=== PATIENT | female | born 1950 | race Caucasian/White ===

== ENCOUNTER → 2020-06-14 15:13 | Outpatient (CLI) | payer MEDICARE, SELFPAY ==
[2020-06-14] MEDS: COVID-19 VACC #1, MRNA(MOD) 100 MCG/0.5 ML VIAL IM (15:25)
== END ==
PROVIDERS: Visit Provider Internal Medicine
DX: Z23 Encounter for immunization (principal)
CPT/HCPCS: 0011A; 91301

== ENCOUNTER → 2020-07-12 15:33 | Outpatient (CLI) | payer MEDICARE, SELFPAY ==
[2020-07-12] MEDS: COVID-19 VACC #2, MRNA(MOD) 100 MCG/0.5 ML VIAL IM (15:38)
== END ==
PROVIDERS: Visit Provider Internal Medicine
DX: Z23 Encounter for immunization (principal)
CPT/HCPCS: 0012A; 91301

== ENCOUNTER 2025-04-13 12:49 | Emergency (ER) | payer MEDICARE, SELFPAY ==
[2025-04-13 12:58] VITALS: BP 126/85; PULSE 61; RESP 17; TEMP 36.6; O2SAT 97; BMI 34.4
--- NOTE | 2025-04-13 13:07 | EKG_ITS ---
[facility] [id number], [place] [address] Test Date: 2025-04-13 Pat Name: Bozena Baca Department: [facility] Room: Gender: Female Marketing Team Lead: : 1950 Requested By: Order Number: [id number] Reading MD: Abdifatah Snyder MD Measurements Intervals [place] Rate: 52 P: 36 IL: 180 QRS: 4 QRSD: 100 T: 73 QT: 450 QTc: 418 Interpretive Statements Sinus bradycardia Electronically Signed On 04-13-2025 14:29:15 PST by Abdifatah Snyder MD
[2025-04-13 13:33] LABS: Add Manual Diff / Slide Review NO; Hematocrit 41.9 % (36-46); Hemoglobin 13.9 g/dL (12.0-16.0); Lymphocytes Absolute Auto 1600 /uL (1100-4500); Mean Corpuscular HGB Conc 33.2 % (30-36); Mean Corpuscular Hemoglobin 28.3 PG (26-34); Mean Corpuscular Volume 85.4 fL (80-100); Platelet Count 187 X10^3/uL (150-400)
[2025-04-13 13:46] LABS: Alanine Aminotransferase 33 IU/L (<35); Albumin 4.1 g/dL (3.5-5.0); Albumin Globulin Ratio 1.5 (1.0-2.8); Alkaline Phosphatase 81 U/L (38-126); Blood Urea Nitrogen 16 mg/dL (7-17); Calcium 8.8 mg/dL (8.4-10.2); Carbon Dioxide 23 mmol/L (22-32); Chloride 106 mmol/L (98-107); Estimated Glomerular Filt Rate > 60 mL/min (>60); Globulin 2.7 g/dL (1.7-4.1); Glucose 106 mg/dL (70-99); HEMOLYSIS < 15 (0-50); Lipase 145 U/L (23-300); Potassium 4.6 mmol/L (3.4-5.1); Sodium 137 mmol/L (137-145); Total Protein 6.8 g/dL (6.3-8.2)
[2025-04-13 13:57] LABS: Troponin I < 0.012 ng/mL (0.01-0.034)
--- NOTE | 2025-04-13 15:20 | ED.GENADULT ---
HPI - General Adult General Chief complaint: Abdominal Pain Stated complaint: Pain in R side rib cage,rad pain R neck/shoulder Time Seen by Provider: 04/13/25 14:54 Source: patient Mode of arrival: Ambulatory History of Present Illness HPI narrative: 74-year-old woman with a history of hypertension, reflux, depression Was at the grocery store pushing cart and noticed a heaviness in the midepigastrium including weakness in both arms. Now complaining of right upper quadrant abdominal and lower right rib pain. No fevers, diaphoresis, no recent upper respiratory infections. Related Data Allergies Allergy/AdvReac Type Severity Reaction Status Date / Time No Known Drug Allergies Allergy Verified 04/13/25 13:00 Review of Systems Review of Systems Narrative: Pertinent positive and negative findings as per HPI Patient History Medical History (Updated 04/13/25 @ 22:16 by Chantale Carty MD) Chronic GERD Depression Hypertension Smoking Status: Smoker, status unknown Exam Initial Vital Signs Initial Vital Signs: Vital Signs Temperature 98 F 04/13/25 12:58 Pulse Rate 61 04/13/25 12:58 Respiratory Rate 17 04/13/25 12:58 Blood Pressure 126/85 04/13/25 12:58 Pulse Oximetry 97 04/13/25 12:58 Oxygen Delivery Method Room Air 04/13/25 12:58 General: Healthy appearing, in no acute distress. Able to give a complete and coherent history. Well-nourished well-developed HEENT: Moist mucous membranes, normal sclera with reactive pupils, Respiratory: Lungs are clear to auscultation, no wheezing no rales no rhonchi. Full and symmetrical air movement Cardiac: Regular rate and rhythm no murmurs no bruits Abdomen: Soft, nontender, no rebound or guarding, no flank pain Skin: Warm and dry, no rashes Neurologic: Grossly neurologically intact with no obvious asymmetries or abnormalities Extremities: No trauma, well perfused Psych: Cooperative, appropriate insight and affect Course Orders Ordered: ED Orders 04/13/25 13:25 Complete Blood Count AUTO DIFF Stat Comprehensive Metabolic Panel Stat Lipase Stat Trop I [Troponin I] Stat 04/13/25 15:22 XR chest 1V Stat 04/13/25 16:05 Trop I [Troponin I] Stat Ondansetron HCl (Ondansetron 4 Mg/2 Ml Inj) 4 mg IV NOW PRN PRN Reason: Nausea And Vomiting Ondansetron HCl (Ondansetron 4 Mg Odt) 4 mg PO NOW PRN PRN Reason: Nausea And Vomiting Vital Signs Vital signs: Vital Signs - 8 hr 04/13/25 16:53 04/13/25 18:37 04/13/25 18:39 Temperature 97 F L Pulse Rate 50 L 50 L Respiratory Rate 16 20 Blood Pressure 183/81 H 159/70 H Pulse Oximetry 96 99 Oxygen Delivery Method Room Air Room Air 04/13/25 18:39 04/13/25 20:13 04/13/25 21:57 Temperature 97.2 F L Pulse Rate 51 L 57 L Respiratory Rate 16 18 Blood Pressure 143/74 H 152/86 H Pulse Oximetry 96 95 Oxygen Delivery Method Room Air Room Air Medical Decision Making Lab Data 04/13/25 13:25 04/13/25 13:25 Labs: Lab Results 04/13/25 04/13/25 Range/Units 13:25 16:05 WBC 6.5 (4.5-11.0) X10^3/uL RBC 4.91 (4.0-5.2) X10^6/uL Hgb 13.9 (12.0-16.0) g/dL Hct 41.9 (36-46) % MCV 85.4 (80-100) fL MCH 28.3 (26-34) PG MCHC 33.2 (30-36) % RDW 13.1 (11.6-14.8) % Plt Count 187 (150-400) X10^3/uL Neut % (Auto) 66.6 (50-75) % Lymph % (Auto) 24.3 L (25-40) % [place] % (Auto) 7.2 (3-14) % Eos % (Auto) 1.4 L (2-4) % Baso % (Auto) 0.5 (0-2) % Neut # (Auto) 4300 (6753-1026) /uL Lymph # (Auto) 1600 (3328-8699) /uL [place] # (Auto) 500 (0-900) /uL Eos # (Auto) 100 (0-450) /uL Baso # (Auto) 0 (0-100) /uL Sodium 137 (137-145) mmol/L Potassium 4.6 (3.4-5.1) mmol/L Chloride 106 (98-107) mmol/L Carbon Dioxide 23 (22-32) mmol/L BUN 16 (7-17) mg/dL Creatinine 0.99 (0.52-1.04) mg/dL Estimated GFR > 60 (>60) mL/min BUN/Creatinine Ratio 16.2 (6-22) Glucose 106 H (70-99) mg/dL Calcium 8.8 (8.4-10.2) mg/dL Total Bilirubin 0.7 (0.2-1.3) mg/dL AST 86 H (14-36) IU/L ALT 33 (<35) IU/L Alkaline Phosphatase 81 (38-126) U/L Troponin I < 0.012 < 0.012 (0.01-0.034) ng/mL Total Protein 6.8 (6.3-8.2) g/dL Albumin 4.1 (3.5-5.0) g/dL Globulin 2.7 (1.7-4.1) g/dL Albumin/Globulin Ratio 1.5 (1.0-2.8) Lipase 145 (23-300) U/L [facility] Narrative Medical decision making narrative: 74-year-old woman with a history of hypertension, reflux, depression noticed some chest pain as she was pushing her grocery cart earlier today. He has never had similar symptoms. On arrival in the emergency department she was complaining of some right lower anterior rib and right upper quadrant pain. Associated with a she describes some heaviness down both arms. Differential includes muscle strain, acute coronary syndrome, she does not have a gallbladder so gallbladder disease is less likely, pneumonia Her exam has some mild tenderness right anterior ribs. Remainder of exam is benign Labs CBC is unremarkable Chemistries are reassuring 1st and 2nd troponins are unremarkable Lipase is normal Chest x-ray shows no acute abnormality Chest x-ray shows sinus bradycardia at a rate of 52 with no acute ischemic changes 74-year-old woman with brief episode of right sided chest pain with some tenderness to palpation in the right upper quadrant associated with weakness down both arms with mild activity. This gives her a HEART score=3. Shortly after arrival in the emergency room all of her symptoms has resolved. They have not returned. We talked about paying attention over the next couple of weeks to see if she has recurrent episodes particularly to see if they are associated with exertion or shortness for breath. If so I did recommend discussion with her primary care physician for cardiac stress testing to help with further risk stratification. At this time there is no indication for further workup or hospital admission and she is safely discharge Discharge Plan Departure Patient Disposition: Home Clinical Impression: Atypical chest pain Instructions: DI for Atypical Chest Pain Activity Restrictions/Additional Instructions: Thank you for coming in today Your workup was actually very reassuring. There was no sign of a heart attack, pneumonia, collapsed lung, acute liver problems, your gallbladder as already been removed so it can not be causing symptoms either. Regarding your heart workup, chest x-ray, EKG, heart enzymes x2 are all very reassuring I suspect that this was more musculoskeletal pain or perhaps related to heartburn. Please do pay attention over the next couple of weeks. If you continue to have similar symptoms I would schedule an appointment with your primary care physician and discuss the possibility of stress test. If the symptoms are acute and not relieved within minutes you need to return again to the emergency department Referrals: Ad Goyal MD [Primary Care Provider, Internal Medicine] Stand Alone Forms: Patient Portal/API
--- NOTE | 2025-04-13 15:22 | DI.RAD.S_ITS ---
PROCEDURE: XR CHEST 1V INDICATIONS: Right chest pain TECHNIQUE: One view of the chest was acquired. COMPARISON: [facility], CR, XR CHEST 2 VIEWS, 07/11/2021, 9:22. FINDINGS: Surgical changes and devices: Sternotomy wires are seen. There is a prosthetic aortic valve. Lungs and pleura: Lungs are clear. No pleural effusions or pneumothorax. There is elevation of the left hemidiaphragm. Mediastinum: The cardiac contours are within normal limits. The aorta demonstrates calcification and tortuosity. Bones and chest wall: No suspicious bony lesions. Age-appropriate bony degenerative changes are seen. Overlying soft tissues appear unremarkable. IMPRESSION: A cause of right-sided chest pain is not seen. No focal pulmonary abnormality is seen. There is stable elevation of the left hemidiaphragm. Postoperative and degenerative changes are seen. Dictated by: Demian Shepherd M.D. on 04/13/2025 at 15:12 Approved by: Deiman Shepherd M.D. on 04/13/2025 at 15:13
[2025-04-13 16:36] LABS: Troponin I < 0.012 ng/mL (0.01-0.034)
[2025-04-13 16:53] VITALS: BP 183/81; PULSE 50; RESP 16; O2SAT 96
[2025-04-13 18:37] VITALS: BP 159/70; PULSE 50; RESP 20; O2SAT 99
[2025-04-13 18:39] VITALS: TEMP 36.1; TEMP 36.2
[2025-04-13 20:13] VITALS: BP 143/74; PULSE 51; RESP 16; O2SAT 96
[2025-04-13 21:57] VITALS: BP 152/86; PULSE 57; RESP 18; O2SAT 95
== END 2025-04-13 22:20 | disposition home or self-care (01) ==
PROVIDERS: Emergency Medicine; Emergency Provider Emergency Medicine; PCP Internal Medicine
DX: R07.89 Other chest pain (principal); R10.11 Right upper quadrant pain; R53.1 Weakness; Z86.79 Personal history of other diseases of the circulatory system
CPT/HCPCS: 36415; 71045; 80053; 83690; 84484; 85025; 93005; 93010; 99283; 99284